=== PATIENT | male | born 1980 | race African-American/Black ===

== ENCOUNTER 2019-09-14 11:13 | Emergency (ER) | payer OTHER ==
[~2019-09-14] VITALS: Ht 193 cm; Wt 132.0 kg
[2019-09-14 12:56] VITALS: BP 167/101
== END 2019-09-14 18:26 | disposition left against medical advice (07) ==
LOC: ER 11:13
DX: Z53.21 Procedure and treatment not carried out due to patient leaving prior to being seen by health care provider (principal)

== ENCOUNTER 2022-12-04 13:21 | Emergency (ER) | payer OTHER ==
[~2022-12-04] VITALS: Ht 180.3 cm; Wt 143.0 kg
[2022-12-04 13:33] VITALS: BP 206/111
== END 2022-12-04 16:32 | disposition left against medical advice (07) ==
LOC: ER 13:21
DX: Z53.21 Procedure and treatment not carried out due to patient leaving prior to being seen by health care provider (principal); I49.9 Cardiac arrhythmia, unspecified
CPT/HCPCS: 82962; 93005; 99281